=== PATIENT | female | born 1960 | race African-American/Black ===

== ENCOUNTER 2019-05-23 06:03 | Inpatient (IN) | payer OTHER ==
[2019-05-23] MEDS ORDERED: HEPARIN NA (PORCINE) 5,000 UNITS/ML 1ML VIAL ONE (07:20)
[2019-05-23] MEDS ORDERED: THROMBIN (BOVINE) 5,000 UNIT VIAL TP ONE ×2 (07:21→09:01)
[2019-05-23] MEDS ORDERED: SUCCINYLCHOLINE CHLORIDE 200 MG/10 ML SYRINGE ONE (07:25)
[2019-05-23] MEDS ORDERED: PROPOFOL 20 ML ONE ×11 (07:25→11:56)
[2019-05-23] MEDS ORDERED: fentaNYL CITRATE 250 MCG/5 ML VIAL ONE (07:25)
[2019-05-23] MEDS ORDERED: ROCURONIUM BROMIDE 50 MG/5 ML SYRINGE ONE (07:26)
[2019-05-23] MEDS ORDERED: TRANEXAMIC ACID 1000 MG/10 ML VIAL ONE ×2 (07:33→11:54)
[2019-05-23] MEDS ORDERED: ceFAZolin SODIUM 1 GM VIAL ONE ×2 (07:33→17:54)
[2019-05-23] MEDS ORDERED: VANCOMYCIN 1,000 MG VIAL (RESTRICTED TO ID ONLY) ONE ×2 (07:33→07:35)
[2019-05-23] MEDS ORDERED: BENZOIN TINCTURE SWABSTICK TP ONE (07:38)
[2019-05-23] MEDS ORDERED: BUPIVACAINE HCL/PF 0.25% (2.5MG/ML) 10 ML VIAL ONE (07:38)
[2019-05-23] MEDS ORDERED: BUPIVACAINE LIPOSOME/PF (EXPAREL) 266 MG/20 ML VIAL ONE (07:40)
[2019-05-23] MEDS ORDERED: BUPIVACAINE HCL/PF 0.5% (5 MG/ML) 30 ML VIAL IJ ONE (07:41)
[2019-05-23] MEDS ORDERED: MIDAZOLAM HCL 2 MG/2 ML SINGLE DOSE VIAL ONE ×2 (07:41)
[2019-05-23] MEDS ORDERED: VANCOMYCIN 1,000 MG VIAL (RESTRICTED TO ID ONLY) IVPB ONE (08:00)
[2019-05-23] MEDS ORDERED: ceFAZolin SODIUM 1 GM VIAL IVPB ONE (08:45)
[2019-05-23] MEDS ORDERED: ONDANSETRON 4 MG/2 ML VIAL IVPUSH PRN ×2 (08:59→13:14)
[2019-05-23] MEDS ORDERED: LACTATED RINGERS SOLUTION 1,000 ML IV SCH (09:00)
[2019-05-23] MEDS ORDERED: HEPARIN NA (PORCINE) 5,000 UNITS/ML 1ML VIAL SQ ONE (09:07)
[2019-05-23] MEDS ORDERED: PHENYLEPHRINE HCL 10 MG/1 ML SINGLE DOSE VIAL ONE (09:13)
[2019-05-23] MEDS ORDERED: NEOSTIGMINE METHYLSULFATE 0.5 MG/1 ML - 10 ML MDV ONE (10:50)
[2019-05-23] MEDS ORDERED: GLYCOPYRROLATE 0.2 MG/1 ML VIAL ONE (10:50)
[2019-05-23] MEDS ORDERED: diazePAM CARPU-JECT 10 MG/2 ML DISP.SYRIN IVPUSH PRN (13:14)
[2019-05-23] MEDS ORDERED: ACETAMINOPHEN INJECTION 100 ML IVPB ONE (13:19)
[2019-05-23] MEDS: ACETAMINOPHEN 1000 MG/100 ML VIAL (NON FORMULARY) IVPB SCH ×2 (13:20→22:13)
--- NOTE | 2019-05-23 13:35 | PN ---
Progress Note (short form) - Note Progress Note: 58F s/p removal of hardware L4-s1, inspection of fusion mass, L3 & L4 laminectomies, L3-L4, L3-S1 posterior instrumented spinal fusion POD #0. -Admit to ICU post-op. -Pain control: NO NSAID's; patient received pre-op TLIP block w/Exparel; OK to use SHANK PAPERER if needed; transition to oral analgesia post-op. -DVT PPx: -Mechanical only: LEIDA's, SCD's. -Chemical: None. -Incentive spirometry q15 min. -NPO until flatus. -Atwood care; d/c when ambulating. -Post-op Ancef x 3 doses. -PT/OT/Rehab, OOB. -WBAT B/L LE. -No bending, lifting (>5 lbs), or twisting for 9-12 months. -Care per ICU & medical hospitalist teams. -Discharge planning: f/u 7[facility]10 [facility]; call for appointment; . -Will follow. Perry Tate MD (Orthopaedic Surgery).
[2019-05-23] MEDS ORDERED: CEFAZOLIN 1 GM in DEXTROSE 5%-WATER - 50 ML IVPB SCH (13:45)
--- NOTE | 2019-05-23 13:45 | OP ---
Operative Note - Note: Operative Date: 05/23/19 Pre-Operative Diagnosis: 1. Synovial facet cyst L3-L4. 2. Severe spinal stenosis L3-L4. 3. Adjacent level disease L3-L4. 4. L3-L4 spondylotic radiculopathy w/neurogenic claudication. Severity of illness: 4. Operation: 1. Removal of hardware L4-S1. 2. Inspection of fusion mass. 3. L3 & L4 bilateral laminectomies. 4. L3-L4 PLIF. 5. L3-L4 Intervertebral mechanical device. 6. L3-S1 posterior instrumentation. 7. L3-S1 posterolateral arthrodesis. 8. Bone autograft. 9. Bone allograft. 10. Stem cell aspirate autograft Post-Operative Diagnosis: Same as Pre-op Surgeon: Perry Tate Assistant Professor Of Life Sciences: Vicente Tate Anesthesiologist/TECHNICAL SALES SUPPORT MANAGER: John Narayanan Anesthesia: General, Local (TLIP) Specimens Removed: L3-L4 disc. Old hardware Estimated Blood Loss (mls): 700 Drains & Tubes with Location: 1 x Deep HemoVac drain Blood Volume Replaced (mls): 250 (Cell Saver) Fluid Volume Replaced (mls): 2,400 (Crystalloid) Operative Report Dictated: Yes
[2019-05-23] MEDS ORDERED: ACETAMINOPHEN 1000 MG/100 ML VIAL (NON FORMULARY) IVPB ONE ×2 (14:00→20:00)
[2019-05-23] MEDS ORDERED: HYDROmorphone *PCA* 10MG/50ML DISP.SYRIN ONE (14:06)
[2019-05-23] MEDS: HYDROmorphone *PCA* 10MG/50ML DISP.SYRIN PCA SCH (14:19)
--- NOTE | 2019-05-23 14:41 | OP ---
DATE OF OPERATION: DATE OF DICTATION: 05/23/2019 SURGEON: Perry Tate MD LAUNDRY ATTENDANT: Vicente Tate MD PREOPERATIVE DIAGNOSIS: Adjacent level spinal stenosis due to disk prolapse and facet cyst with associated segmental instability at L3, 4 previous L4, 5, 1 posterior lumbar interbody fusion. POSTOPERATIVE DIAGNOSIS: Adjacent level spinal stenosis due to disk prolapse and facet cyst with associated segmental instability at L3, 4 previous L4, 5, 1 posterior lumbar interbody fusion. OPERATIONS PERFORMED: 1. Removal of hardware. Inspection of fusion mass. 2. Laminectomy L3 with undercutting facetectomy. 3. Diskectomy L3, 4 with posterior lumbar interbody fusion. 4. Insertion of cage with interbody bone graft L3, 4. 5. Pedicle screw fixation L3, 4, 5, S1. 6. L3, 4, 5, S1 posterolateral arthrodesis. 7. Use of biplanar fluoroscopy and intraoperative neural monitoring. 8. Use of bone marrow aspirate concentrate with autologous bone graft. 9. Complex wound closure 4 layers 20 cm. ANESTHESIA: General with Exparel paraspinal block. OPERATION DETAILS: Patient correctly identified. Brought to operating room. Imaging was available for intraoperative evaluation. Time-out was called. Indications, persistent, increasing lower back pain with associated femoral claudico radiculopathy due to adjacent level spinal stenosis and associated facet cyst. These elements required decompression. Patient placed prone on a Ulysses table. All bony points correctly padded including paying attention to eyes and level of table. We operated at about 10 degree anti Trendelenburg for optic vein drainage. The skin was prepped and draped in the routine manner with Betadine scrub solution, wiped off with alcohol, DuraPrep applied, window drape applied. Midline incision was made. This was extended proximally. Dissection taken to the tip of the spinous processes of L2. A subperiosteal dissection was performed. The CrossLinq was identified and the dissection extended out laterally to expose the hardware appropriately. The caps of the tulips were removed to L4, 5, 1. The rods were removed. Inspection of the fusion mass revealed that this was solidly fused. Once this had been performed, using a curette, the undersurface of the inferior aspect of the lamina was transected to gain entry into the epidural space using a No. 4 and 5 Kerrison upcut. A central channel in the L3 lamina was cut to expose the dura completely from caudal to cranial, cranial just being caudal to the L2 undersurface of the lamina. Using osteotomes, we imploded the bone by splitting the pars intra-articularis and the inferior facet of L3. This exposed the superior facet of L4 appropriately. As only once the superior facet was exposed could the severe stenosis be readily appreciated, the facet cyst was removed with thickened surrounding tissue as well exposing and freeing the entire thecal sac. No complications in this difficult dissection, which was dissected largely using Leksells, Kerrison upcuts as well as the implosion of the bone using osteotomes as outlined above. The thecal was gently freed completely and retracted from right to left. The disk of L3, 4 identified after teasing the epidural fat off the disk and bipolar diathermization of the epidural bleeders gave easy and clear access to the disk itself. An 11 blade was utilized to open the annulus. Shaver was to size 12 and all disk material removed using serrated curettes, neil as well as pituitary rongeurs. The disk space was then packed with the bone that was harvest posteriorly and packed into the intertransverse plane at L3, 4. Once this had been performed, a Fortilink cage packed with bone graft as well was sunk into the interbody plane opening up the disk height to its original anatomical site and ensured that the perimeter were free to allow the exiting nerve roots appropriately. No complications in seating of the cages. Once this had been completed, the pedicles of L3 were identified using anatomical guidelines and lateral fluoroscopic x-ray. A 4.5 drill was utilized to drill and insert two 45-mm x 6 screws into the pedicles then vertebral bodies. These were then tested with intraoperative neural monitoring, and all screws that were in situ namely from L3, 4, 5, S1 were well above the safe zone of 20 mA. Rods were contoured appropriately to all the tulips and the caps tightened appropriately with a torque device giving it solid fixation. No CrossLinq utilized. The thecal sac and dura and all nerves now completely freed and stabilized by mechanical with the instrumentation. The posterolateral arthrodesis was then completed by retracting the muscles gently exposing the transverse process of L3 to the bony edges of the previous fusion mass, which were bleeding, healthy bone. This was bone graft that was packed into the intertransverse plane, which was a combination of autologous bone mixed with allograft bone morphogenic putty combined with stem cells harvested from the left posterior ilium. We utilized the Jamshidi needle and aspirated 60 mL of marrow spun down for the CD34 cells. This brought about thus a completion of the bone grafting once the bone marrow cells were mixed with the actual graft. The wounds were thoroughly lavaged. Retractors were continuous replaced and removed to enable adequate blood supply to the muscle. The neural monitoring reported improved reading numbers from baseline. By the time we left the operating room, there was significant improvement in the femoral nerve as well as tibialis anterior. A complex muscle closure was utilized. The muscle was inspected, trimmed for any necrotic, damaged muscle then following this, the closure was in 4 layers, muscle 1 Vicryl, fascia 1 Vicryl to provide a watertight seal. Subcutaneous 1 and 2-0 Vicryl, skin 3-0 Monocryl, Steri-Strips. Drainage 1/8-inch Hemovac in the subfascial plane. Overall comment, difficult operation but went extremely well with no complications. MD EREN Pagan/[id number] MTDD
[2019-05-23] MEDS: LACTATED RINGERS SOLUTION 1,000 ML IV SCH ×2 (15:45→22:18)
--- NOTE | 2019-05-23 16:58 | CONSULT ---
Consultation: REQUESTING PROVIDER: CONSULT REQUEST: We have been asked to medically evaluate this patient for ICU management. HISTORY OF PRESENT ILLNESS: 58 y/o/f with PMhx of Anemia, chronic back pain, depression, lumbar radiculopathy sent to the ICU after surgery for removal of hardware L4-s1, inspection of fusion mass, L3 & L4 laminectomies, L3-L4, L3-S1 posterior instrumented spinal fusion. History obtained from family member at bedside. Patient sleeping after surgery but arousable. Not providing full answers as she keeps drifting back to sleep. Patient had elective back surgery due to pain after she had a work injury four years ago. She is able to walk with a cane usually. She often has pain in her lower back that radiates down her legs. On repeat exam patient is responsive, alert, able to follow commands and answer questions appropriately. Complains of back pain but otherwise no concerns. Past Surgical History: Abdominoplasty, breast reconstruction, foot surgery, laminectomy, liposuction, shoulder arthroscopy w/rotator cuff repair Social: Tobacco: never Alcohol: social Drugs: denies Allergies: Morphine, pollen extract REVIEW OF SYSTEMS: ROS not obtained as patient not able to provide accurate answers PHYSICAL EXAMINATION Vital Signs - 24 hr 05/23/19 05/23/19 05/23/19 06:52 07:30 13:02 Temperature 98.0 F 97.5 F L Pulse Rate 59 L 91 H Respiratory 20 14 Rate Blood Pressure 101/73 126/85 O2 Sat by Pulse 99 97 Oximetry (%) 05/23/19 05/23/19 05/23/19 13:15 13:30 13:45 Temperature Pulse Rate 80 87 71 Respiratory 14 16 12 Rate Blood Pressure 133/86 119/77 135/82 O2 Sat by Pulse 100 100 100 Oximetry (%) 05/23/19 05/23/19 05/23/19 14:00 14:15 14:19 Temperature Pulse Rate 60 71 71 Respiratory 16 16 16 Rate Blood Pressure 110/76 116/85 116/85 O2 Sat by Pulse 100 99 100 Oximetry (%) 05/23/19 05/23/19 05/23/19 14:30 14:45 15:00 Temperature Pulse Rate 60 60 58 L Respiratory 10 10 12 Rate Blood Pressure 133/82 139/88 142/85 O2 Sat by Pulse 100 100 100 Oximetry (%) 05/23/19 16:30 Temperature 98.4 F Pulse Rate 53 L Respiratory 13 Rate Blood Pressure 113/78 O2 Sat by Pulse 100 Oximetry (%) GENERAL: awake, alert, no acute distress HEAD: NC/AT EYES: no scleral icterus, PERRL EARS, NOSE, THROAT: dry mucous membranes NECK: supple without lymphadenopathy, JVD, or masses. LUNGS: Breath sounds equal, clear to auscultation bilaterally. No wheezes, and no crackles. No accessory muscle use. HEART: Regular rate and rhythm, normal S1 and S2 without murmur, rub or gallop. ABDOMEN: Soft, nontender, not distended, normoactive bowel sounds, no guarding, no rebound, no masses. No hepatomegaly or splenomegaly. UPPER EXTREMITIES: 2+ pulses, warm, well-perfused. No cyanosis. Cap refill <2 seconds. No peripheral edema. LOWER EXTREMITIES: 2+ pulses, warm, well-perfused. No peripheral edema. NEURO: CN 2-12 normal, normal speech. normal muscle tone. SKIN: Warm, dry, normal turgor, no rashes or lesions noted. Laboratory Results - last 24 hr 05/23/19 05/23/19 06:15 06:47 Blood Type O POSITIVE O POSITIVE Antibody Screen Negative Active Medications Generic Name Dose Route Start Last Admin Trade Name Freq PRN Reason Stop Dose Admin Acetaminophen 1,000 mg 05/23/19 13:30 05/23/19 13:20 Ofirmev Injection - IVPB 05/24/19 05:31 1,000 mg Q8H GRECIA Administration Atorvastatin Calcium 80 mg 05/23/19 22:00 Lipitor - PO HS GRECIA Diazepam 5 mg 05/23/19 13:14 Valium Injection - IVPUSH Q8H PRN MUSCLE SPASMS Hydromorphone HCl 10 mg 05/23/19 09:15 05/23/19 14:19 Hydromorphone 10 Mg/50 Ml-Ns EXTRUSION SUPERVISOR 05/30/19 09:06 10 mg EXTRUSION SUPERVISOR GRECIA Administration Protocol Lactated Ringer's 1,000 mls @ 125 mls/hr 05/23/19 13:15 Lactated Ringers Solution IV ASDIR GRECIA Cefazolin Sodium 1 gm/ 50 mls @ 100 mls/hr 05/23/19 18:00 Dextrose IVPB 05/24/19 06:29 Q6H GRECIA Ondansetron HCl 4 mg 05/23/19 13:14 Zofran Injection IVPUSH Q6H PRN NAUSEA AND/OR VOMITING ASSESSMENT/PLAN: 58 y/o/f with PMhx of Anemia, chronic back pain, depression, lumbar radiculopathy sent to the ICU after surgery for removal of hardware L4-s1, inspection of fusion mass, L3 & L4 laminectomies, L3-L4, L3-S1 posterior instrumented spinal fusion. POD#0. #Neuro - Pain control: NO NSAID's; patient received pre-op TLIP block w/Exparel; OK to use EXTRUSION SUPERVISOR if needed; transition to oral analgesia post-op. - Atwood care; d/c when ambulating #Ortho - No bending, lifting (>5 lbs), or twisting for 9-12 months - PT/OT/Rehab, OOB - WBAT B/L LE - f/u 7-10 days after rehab discharge at [facility] office; call for appointment; . #Cardio - Continue Atorvastatin 80mg PO HS #Respiratory - Incentive spirometry q15 min #GI - NPO until flatus. #ID - Post-op Ancef x 3 doses #Prophylaxis - Mechanical only: LEIDA's, SCD's. - Chemical: None. #FEN - LR@125mls #Disposition - Monitor in ICU Visit type - Emergency Visit Emergency Visit: No - New Patient This patient is new to me today: Yes Date on this admission: 05/24/19 - Critical Care Critical Care patient: Yes Total Critical Care Time (in minutes): 36 Critical Care Statement: The care of this patient involved high complexity decision making to prevent further life threatening deterioration of the patient 's condition and/or to evaluate & treat vital organ system(s) failure or risk of failure. ATTENDING PHYSICIAN STATEMENT I saw and evaluated the patient. I reviewed the resident's note and discussed the case with the resident. I agree with the resident's findings and plan as documented. SUBJECTIVE: OBJECTIVE: ASSESSMENT AND PLAN:
[2019-05-23] MEDS ORDERED: DEXTROSE 5%-WATER - 50 ML IVPB ONE (17:54)
[2019-05-23] MEDS: CEFAZOLIN 1 GM in DEXTROSE 5%-WATER - 50 ML IVPB SCH (17:57)
[2019-05-23] MEDS: ATORVASTATIN CA 80 MG TABLET (FP) PO SCH (22:18)
[2019-05-24] MEDS: CEFAZOLIN 1 GM in DEXTROSE 5%-WATER - 50 ML IVPB SCH ×2 (00:50→05:22)
[2019-05-24] MEDS ORDERED: ceFAZolin SODIUM 1 GM VIAL ONE ×2 (02:06→05:18)
[2019-05-24] MEDS ORDERED: DEXTROSE 5%-WATER - 50 ML IVPB ONE ×2 (02:07→05:18)
[2019-05-24] MEDS: ACETAMINOPHEN 1000 MG/100 ML VIAL (NON FORMULARY) IVPB SCH (05:21)
[2019-05-24 06:52] LABS: HEMATOCRIT 32.6 % (32.4-45.2); HEMOGLOBIN 10.7 GM/dL (10.7-15.3); MCH 27.1 pg (25.7-33.7); MCHC 32.9 g/dl (32.0-36.0); MEAN CELL VOLUME 82.4 fl (80-96); MEAN PLT VOLUME 8.7 fl (7.5-11.1); PLATELET COUNT 170 K/MM3 (134-434); RBC 3.96 M/mm3 (3.60-5.2); RDW 14.4 % (11.6-15.6); WHITE BLOOD COUNT 7.1 K/mm3 (4.0-10.0)
[2019-05-24 07:17] LABS: BLOOD UREA NITROGEN 8.2 mg/dL (7-18); CALCIUM 8.1 mg/dL (8.5-10.1); CREATININE 0.8 mg/dL (0.55-1.3); POTASSIUM 3.8 mmol/L (3.5-5.1)
--- NOTE | 2019-05-24 07:40 | PN ---
Progress Note (short form) - Note Progress Note: Anesthesia Post op note Pt seen s/p GA w/ PNB for lumbar hardware removal Pt awake alert comfortable in bed Denies n/v tolerating sips, denies puritis, Atwood remains in situ, pt has not ambulated Pt pain managed well on MAC ARTIST - continue MAC ARTIST VSS no apparent anesthesia complications Carmen Hamilton.
--- NOTE | 2019-05-24 07:43 | PN ---
Physical Exam: SUBJECTIVE: Patient seen and examined by the bedside. Endorses lower back pain, denies flatus. No SOB, chest pain, or confusion. OBJECTIVE: Vital Signs Period Temp Pulse Resp BP Sys/Armas Pulse Ox Last 24 Hr 97.5 F-101.4 F 53-103 10-20 99-145/67-94 97-100 GENERAL: AOx3 HEAD: No evidecne of trauma EYES: SHADY, EOMI EARS, NOSE, THROAT: dry mucous membranes NECK: supple without lymphadenopathy, JVD, or masses. LUNGS: Decreased breath sounds B/L HEART: RRR ABDOMEN: Soft, nontender, not distended, normoactive bowel sounds, no guarding, no rebound, no masses. No hepatomegaly or splenomegaly. UPPER EXTREMITIES: 2+ pulses, warm, well-perfused. No cyanosis. Cap refill <2 seconds. No peripheral edema. LOWER EXTREMITIES: 2+ pulses, warm, well-perfused. No peripheral edema. NEURO: CN 2-12 normal, normal speech. normal muscle tone. SKIN: Warm, dry, normal turgor, no rashes or lesions noted. Laboratory Results - last 24 hr 05/23/19 05/23/19 05/24/19 06:15 06:47 05:20 Sodium 136 Potassium 3.8 Chloride 100 Carbon Dioxide 31 Anion Gap 5 L BUN 8.2 Creatinine 0.8 Est GFR (CKD-EPI)AfAm 94.19 Est GFR (CKD-EPI)NonAf 81.27 Random Glucose 101 Calcium 8.1 L Blood Type O POSITIVE O POSITIVE Antibody Screen Negative Active Medications Generic Name Dose Route Start Last Admin Trade Name Freq PRN Reason Stop Dose Admin Atorvastatin Calcium 80 mg 05/23/19 22:00 05/23/19 22:18 Lipitor - PO 80 mg HS GRECIA Administration Diazepam 5 mg 05/23/19 13:14 Valium Injection - IVPUSH Q8H PRN MUSCLE SPASMS Hydromorphone HCl 10 mg 05/23/19 09:15 05/23/19 14:19 Hydromorphone 10 Mg/50 Ml-Ns WEIGHT CALLER 05/30/19 09:06 10 mg WEIGHT CALLER GRECIA Administration Protocol Lactated Ringer's 1,000 mls @ 125 mls/hr 05/23/19 13:15 05/23/19 22:18 Lactated Ringers Solution IV 125 mls/hr ASDIR GRECIA Administration Ondansetron HCl 4 mg 05/23/19 13:14 Zofran Injection IVPUSH Q6H PRN NAUSEA AND/OR VOMITING ASSESSMENT/PLAN: 58 year old female with PMH of Anemia, chronic back pain, depression, and lumbar radiculopathy. POD#1 after removal of hardware L4-S1, inspection of fusion mass, L3 & L4 laminectomies, L3-L4, L3-S1 posterior instrumented spinal fusion. #Neuro - NO NSAIDS - Received pre-op TLIP (thoraco lumbar interfascial plane) block w/Exparel - Hydromorphone 10mg WEIGHT CALLER #Ortho - No bending, lifting (>5 lbs), or twisting for 9-12 months - PT/OT/Rehab #Cardio - Continue Atorvastatin 80mg PO HS #Respiratory - CXR ordered - Incentive spirometry q15 min #GI - NPO until flatus. #ID - Fever of 101.2, CXR ordered, atelectasis suspected - Post-op Cefazolin x 3 doses #DVT PE - SCD #FEN - LR@125mls #Disposition - Transfer to med/surg Visit type - Emergency Visit Emergency Visit: Yes ED Registration Date: 05/23/19 Care time: The patient presented to the Emergency Department on the above date and was hospitalized for further evaluation of their emergent condition. - New Patient This patient is new to me today: No - Critical Care Critical Care patient: Yes Total Critical Care Time (in minutes): 38 Critical Care Statement: The care of this patient involved high complexity decision making to prevent further life threatening deterioration of the patient 's condition and/or to evaluate & treat vital organ system(s) failure or risk of failure. ATTENDING PHYSICIAN STATEMENT I saw and evaluated the patient. I reviewed the resident's note and discussed the case with the resident. I agree with the resident's findings and plan as documented. SUBJECTIVE: OBJECTIVE: ASSESSMENT AND PLAN:
[2019-05-24] MEDS: LACTATED RINGERS SOLUTION 1,000 ML IV SCH (09:02)
--- NOTE | 2019-05-24 10:50 | PN ---
Physical Exam: SUBJECTIVE: Patient seen and examined at the bedside. offers no complaints. OBJECTIVE: Patient is a 58 year old female with a significant past medical history of anemia, chronic back pain, depression, lumbar radiculopathy and HLD. She is being monitored in the ICU s/p surgery for removal of hardware L4-S1, inspection of fusion mass, L3 & L4 laminectomies, L3-L4, L3-S1 posterior instrumented spinal fusion. Pain being managed with ELECTRONIC GAME DEVELOPER pump. Vital Signs Period Temp Pulse Resp BP Sys/Armas Pulse Ox Last 24 Hr 97.5 F-101.4 F 53-103 10 99-145/60-94 97-100 GENERAL: The patient is awake, alert, and fully oriented, in no acute distress. HEAD: Normal with no signs of trauma. EYES: PERRL, extraocular movements intact, sclera anicteric, conjunctiva clear. No ptosis. ENT: Ears normal, nares patent, oropharynx clear without exudates, moist mucous membranes. NECK: Trachea midline, full range of motion, supple. LUNGS: Breath sounds equal, clear to auscultation bilaterally HEART: Regular rate and rhythm, S1, S2 without murmur, rub or gallop. ABDOMEN: Soft, nontender, nondistended, normoactive bowel sounds EXTREMITIES: 2+ pulses, warm, well-perfused, no edema. NEUROLOGICAL: Normal speech, gait not observed. PSYCH: Normal mood, normal affect. Laboratory Results - last 24 hr 05/23/19 05/24/19 05/24/19 06:47 05:20 05:20 WBC 7.1 RBC 3.96 Hgb 10.7 Hct 32.6 MCV 82.4 MCH 27.1 MCHC 32.9 RDW 14.4 Plt Count 170 MPV 8.7 Sodium 136 Potassium 3.8 Chloride 100 Carbon Dioxide 31 Anion Gap 5 L BUN 8.2 Creatinine 0.8 Est GFR (CKD-EPI)AfAm 94.19 Est GFR (CKD-EPI)NonAf 81.27 Random Glucose 101 Calcium 8.1 L Blood Type O POSITIVE Active Medications Generic Name Dose Route Start Last Admin Trade Name Freq PRN Reason Stop Dose Admin Atorvastatin Calcium 80 mg 05/23/19 22:00 05/23/19 22:18 Lipitor - PO 80 mg HS GRECIA Administration Diazepam 5 mg 05/23/19 13:14 Valium Injection - IVPUSH Q8H PRN MUSCLE SPASMS Hydromorphone HCl 10 mg 05/23/19 09:15 05/23/19 14:19 Hydromorphone 10 Mg/50 Ml-Ns ELECTRONIC GAME DEVELOPER 05/30/19 09:06 10 mg ELECTRONIC GAME DEVELOPER GRECIA Administration Protocol Lactated Ringer's 1,000 mls @ 125 mls/hr 05/23/19 13:15 05/24/19 09:02 Lactated Ringers Solution IV 125 mls/hr ASDIR GRECIA Administration Ondansetron HCl 4 mg 05/23/19 13:14 Zofran Injection IVPUSH Q6H PRN NAUSEA AND/OR VOMITING ASSESSMENT/PLAN: Problem List - Problems (1) S/P laminectomy Assessment/Plan: Lumbar Spinal Stenosis with Radiculopathy and Neurogenic Claudication s/p PEDRO LUIS L4-S1/L3-L4 PLIF/L3-S1 Posterior Instrumentation pain managed with reconciliation clerk pump keep npo until flatus incentive spirometer physical therapy once cleared by surgery wound care bowel regimen Code(s): Z98.890 - OTHER SPECIFIED POSTPROCEDURAL STATES (2) Hypercholesteremia Assessment/Plan: on lipitor 80mg daily Code(s): E78.00 - PURE HYPERCHOLESTEROLEMIA, UNSPECIFIED (3) Prophylactic measure Assessment/Plan: bowel regimen incentive spriometer diet once patient passing flatus monitor in icu full code Code(s): Z29.9 - ENCOUNTER FOR PROPHYLACTIC MEASURES, UNSPECIFIED Visit type - Emergency Visit Emergency Visit: Yes ED Registration Date: 05/23/19 Care time: The patient presented to the Emergency Department on the above date and was hospitalized for further evaluation of their emergent condition. - New Patient This patient is new to me today: Yes Date on this admission: 05/24/19 - Critical Care Critical Care patient: Yes Total Critical Care Time (in minutes): 45 Critical Care Statement: The care of this patient involved high complexity decision making to prevent further life threatening deterioration of the patient 's condition and/or to evaluate & treat vital organ system(s) failure or risk of failure. - Discharge Referral Referred to [facility] Med P.C.: No
[2019-05-24] MEDS ORDERED: LACTATED RINGERS SOLUTION 1,000 ML IV SCH (11:50)
--- NOTE | 2019-05-24 11:57 | PN ---
Teaching Attending Note Name of Resident: Marcos Choudhury ATTENDING PHYSICIAN STATEMENT I saw and evaluated the patient. I reviewed the resident's note and discussed the case with the resident. I agree with the resident's findings and plan as documented. SUBJECTIVE: Pt seen and examined in the ICU. Pain controlled with INSPECTOR HANDBAG FRAMES pump. No flatus yet. Febrile overnight. OBJECTIVE: Vital Signs Period Temp Pulse Resp BP Sys/Armas Pulse Ox Last 24 Hr 97.5 F-101.4 F 53-103 - 99-145/60-94 97-100 Intake & Output 05/21/19 05/22/19 05/23/19 05/24/19 23:59 23:59 23:59 23:59 Intake Total 3655 2019 Output Total 0 1999 Balance 2004 Weight 80.467 kg 82.554 kg Gen: NAD at rest Heart: RRR Lung: decreased breath sounds at the bases Abd: soft, nontender Ext: no edema CBC, BMP 05/24/19 05:20 05/24/19 05:20 Active Medications Atorvastatin Calcium (Lipitor -) 80 mg PO HS GRECIA Last Admin: 05/23/19 22:18 Dose: 80 mg Diazepam (Valium Injection -) 5 mg IVPUSH Q8H PRN PRN Reason: MUSCLE SPASMS Hydromorphone HCl (Hydromorphone 10 Mg/50 Ml-Ns) 10 mg INSPECTOR HANDBAG FRAMES INSPECTOR HANDBAG FRAMES GRECIA; Protocol Stop: 05/30/19 09:06 Last Admin: 05/23/19 14:19 Dose: 10 mg Lactated Ringer's (Lactated Ringers Solution) 1,000 mls @ 75 mls/hr IV ASDIR GRECIA Ondansetron HCl (Zofran Injection) 4 mg IVPUSH Q6H PRN PRN Reason: NAUSEA AND/OR VOMITING ASSESSMENT AND PLAN: Lumbar Spinal Stenosis with Radiculopathy and Neurogenic Claudication s/p PEDRO LUIS L4-S1/L3-L4 PLIF/L3-S1 Posterior Instrumentation Hypercholesterolemia - pain control - incentive spirometry - PO when flatus - IVF - d/c marquez when OOB - DVT prophylaxis - disposition/activity per surgery
[2019-05-24] MEDS ORDERED: ACETAMINOPHEN 1000 MG/100 ML VIAL (NON FORMULARY) IVPB PRN (12:59)
[2019-05-24] MEDS: HYDROmorphone *PCA* 10MG/50ML DISP.SYRIN PCA SCH (19:19)
[2019-05-24] MEDS: ATORVASTATIN CA 80 MG TABLET (FP) PO SCH (21:46)
--- NOTE | 2019-05-24 23:47 | PN ---
Progress Note (short form) - Note Progress Note: POD #! ICU Comfortable C/O Incisional pain. No leg pain. Fully orientated CVS Stable RESP Clear ABD Soft No flatus Minimal distension. Wound Dry Drain in situ. NEURO At baseline ASSESSMENT Doing well post L3to S1 decompression Instrumented fusion. PLAN Transfer out of ICU PT mobilize as tolerated Pain Mx D/C planning
[2019-05-25 06:24] LABS: BASO % 0.3 % (0-2.0); EOS % 0.2 % (0-4.5); HEMATOCRIT 32.1 % (32.4-45.2); HEMOGLOBIN 10.5 GM/dL (10.7-15.3); LYMPH % 12.5 % (8-40); MCH 27.1 pg (25.7-33.7); MCHC 32.8 g/dl (32.0-36.0); MEAN CELL VOLUME 82.8 fl (80-96); MEAN PLT VOLUME 8.7 fl (7.5-11.1); PLATELET COUNT 167 K/MM3 (134-434); RBC 3.87 M/mm3 (3.60-5.2); RDW 14.1 % (11.6-15.6); WHITE BLOOD COUNT 9.7 K/mm3 (4.0-10.0)
[2019-05-25 07:19] LABS: ALBUMIN 2.7 g/dl (3.4-5.0); BILIRUBIN,TOTAL 2.4 mg/dL (0.2-1); BLOOD UREA NITROGEN 8.1 mg/dL (7-18); CALCIUM 8.7 mg/dL (8.5-10.1); CREATININE 0.7 mg/dL (0.55-1.3); MAGNESIUM 1.8 mg/dL (1.8-2.4); PHOSPHOROUS 2.8 mg/dL (2.5-4.9); POTASSIUM 3.6 mmol/L (3.5-5.1); TOT PROT 5.7 g/dl (6.4-8.2)
--- NOTE | 2019-05-25 07:39 | PN ---
Physical Exam: SUBJECTIVE: Patient seen and examined by the bedside. Endorses lower back pain, denies flatus. No SOB, chest pain, or confusion. OBJECTIVE: Vital Signs Period Temp Pulse Resp BP Sys/Armas Pulse Ox Last 24 Hr 98.5 F-101.8 F 83-112 16-22 91-121/56-86 100-100 GENERAL: AOx3 HEAD: No evidecne of trauma EYES: SHADY, EOMI EARS, NOSE, THROAT: dry mucous membranes NECK: supple without lymphadenopathy, JVD, or masses. LUNGS: Decreased breath sounds B/L HEART: RRR ABDOMEN: Soft, nontender, not distended, normoactive bowel sounds, no guarding, no rebound, no masses. No hepatomegaly or splenomegaly. UPPER EXTREMITIES: 2+ pulses, warm, well-perfused. No cyanosis. Cap refill <2 seconds. No peripheral edema. LOWER EXTREMITIES: 2+ pulses, warm, well-perfused. No peripheral edema. NEURO: CN 2-12 normal, normal speech. normal muscle tone. SKIN: Warm, dry, normal turgor, no rashes or lesions noted. Laboratory Results - last 24 hr 05/24/19 05/24/19 05/25/19 05:20 15:15 05:20 WBC 7.1 9.7 RBC 3.96 3.87 Hgb 10.7 10.5 L Hct 32.6 32.1 L MCV 82.4 82.8 MCH 27.1 27.1 MCHC 32.9 32.8 RDW 14.4 14.1 Plt Count 170 167 MPV 8.7 8.7 Absolute Neuts (auto) 7.3 Neutrophils % 75.0 Lymphocytes % 12.5 Monocytes % 12.0 H Eosinophils % 0.2 Basophils % 0.3 Nucleated RBC % 0 Sodium Potassium Chloride Carbon Dioxide Anion Gap BUN Creatinine Est GFR (CKD-EPI)AfAm Est GFR (CKD-EPI)NonAf Random Glucose Lactic Acid 1.2 Calcium Phosphorus Magnesium Total Bilirubin AST ALT Alkaline Phosphatase Total Protein Albumin 05/25/19 05:20 WBC RBC Hgb Hct MCV MCH MCHC RDW Plt Count MPV Absolute Neuts (auto) Neutrophils % Lymphocytes % Monocytes % Eosinophils % Basophils % Nucleated RBC % Sodium 138 Potassium 3.6 Chloride 102 Carbon Dioxide 27 Anion Gap 9 BUN 8.1 Creatinine 0.7 Est GFR (CKD-EPI)AfAm 110.69 Est GFR (CKD-EPI)NonAf 95.50 Random Glucose 68 L Lactic Acid Calcium 8.7 Phosphorus 2.8 Magnesium 1.8 Total Bilirubin 2.4 H AST 39 H ALT 19 Alkaline Phosphatase 65 Total Protein 5.7 L Albumin 2.7 L Active Medications Generic Name Dose Route Start Last Admin Trade Name Freq PRN Reason Stop Dose Admin Acetaminophen 1,000 mg 05/24/19 12:59 05/24/19 13:33 Ofirmev Injection - IVPB 1,000 mg Q6H PRN Administration FEVER Atorvastatin Calcium 80 mg 05/23/19 22:00 05/24/19 21:46 Lipitor - PO 80 mg HS GRECIA Administration Diazepam 5 mg 05/23/19 13:14 Valium Injection - IVPUSH Q8H PRN MUSCLE SPASMS Hydromorphone HCl 10 mg 05/23/19 09:15 05/24/19 19:19 Hydromorphone 10 Mg/50 Ml-Ns HVAC FIELD SERVICE TECHNICIAN 05/30/19 09:06 Not Given HVAC FIELD SERVICE TECHNICIAN GRECIA Protocol Lactated Ringer's 1,000 mls @ 75 mls/hr 05/24/19 11:50 05/24/19 12:01 Lactated Ringers Solution IV 75 mls/hr ASDIR GRECIA Administration Ondansetron HCl 4 mg 05/23/19 13:14 Zofran Injection IVPUSH Q6H PRN NAUSEA AND/OR VOMITING ASSESSMENT/PLAN: 58 year old female with PMH of anemia, chronic back pain, depression, and lumbar radiculopathy. POD#2 after L3to S1 decompression Instrumented fusion. #ID - Temperature down to 99 from 101.2 yesterday - CXR showed no evidence of atelectasis - Bcx ucx pending - Post-op Cefazolin x 3 doses - No output in wound drain #Neuro - NO NSAIDS - Received pre-op TLIP (thoraco lumbar interfascial plane) block w/Exparel - Hydromorphone 10mg HVAC FIELD SERVICE TECHNICIAN - Tylenol IV for pain #Ortho - No bending, lifting (>5 lbs), or twisting for 9-12 months - PT/OT/Rehab #Cardio - Continue Atorvastatin 80mg PO HS #Respiratory - CXR showed no evidence of atelectasis - Incentive spirometry q15 min #GI - No flatus, no BMs - NPO until flatus, but has been drinking water #DVT PE - SCD #FEN - D/5 N/S with 20mEQ K+ @ 75ml/HR - Clear liquids #Disposition - Transfer to med/surg ATTENDING PHYSICIAN STATEMENT I saw and evaluated the patient. I reviewed the resident's note and discussed the case with the resident. I agree with the resident's findings and plan as documented. SUBJECTIVE: OBJECTIVE: ASSESSMENT AND PLAN:
--- NOTE | 2019-05-25 08:58 | PN ---
Progress Note (short form) - Note Progress Note: 58F POD#2 s/p removal of lumbar hardware under GA. Pt. doing well this am. Pain adequately controlled with PRINTING TABLE HAND. No evidence of excessive sedation or resp depression. Recommend continue PRINTING TABLE HAND. Continue management per primary team.
--- NOTE | 2019-05-25 10:32 | PN ---
Physical Exam: SUBJECTIVE: Patient seen and examined at the bedside. OBJECTIVE: Patient is a 58 year old female with a significant past medical history of anemia, chronic back pain, depression, lumbar radiculopathy and HLD. She is being monitored in the ICU s/p surgery for removal of hardware L4-S1, inspection of fusion mass, L3 & L4 laminectomies, L3-L4, L3-S1 posterior instrumented spinal fusion. Pain being managed with CRANE CREW SUPERVISOR pump. Vital Signs Period Temp Pulse Resp BP Sys/Armas Pulse Ox Last 24 Hr 98.5 F-101.8 F 82-112 16-20 91-121/56-86 96-100 GENERAL: The patient is awake, alert, and fully oriented, in no acute distress. HEAD: Normal with no signs of trauma. EYES: PERRL, extraocular movements intact, sclera anicteric, conjunctiva clear. No ptosis. ENT: Ears normal, nares patent, oropharynx clear without exudates, moist mucous membranes. NECK: Trachea midline, full range of motion, supple. LUNGS: Breath sounds equal, clear to auscultation bilaterally HEART: Regular rate and rhythm, S1, S2 without murmur, rub or gallop. ABDOMEN: Soft, nontender, nondistended, normoactive bowel sounds EXTREMITIES: 2+ pulses, warm, well-perfused, no edema. NEUROLOGICAL: Normal speech, gait not observed. PSYCH: Normal mood, normal affect. Laboratory Results - last 24 hr 05/24/19 05/25/19 05/25/19 15:15 05:20 05:20 WBC 9.7 RBC 3.87 Hgb 10.5 L Hct 32.1 L MCV 82.8 MCH 27.1 MCHC 32.8 RDW 14.1 Plt Count 167 MPV 8.7 Absolute Neuts (auto) 7.3 Neutrophils % 75.0 Lymphocytes % 12.5 Monocytes % 12.0 H Eosinophils % 0.2 Basophils % 0.3 Nucleated RBC % 0 Sodium 138 Potassium 3.6 Chloride 102 Carbon Dioxide 27 Anion Gap 9 BUN 8.1 Creatinine 0.7 Est GFR (CKD-EPI)AfAm 110.69 Est GFR (CKD-EPI)NonAf 95.50 Random Glucose 68 L Lactic Acid 1.2 Calcium 8.7 Phosphorus 2.8 Magnesium 1.8 Total Bilirubin 2.4 H AST 39 H ALT 19 Alkaline Phosphatase 65 Total Protein 5.7 L Albumin 2.7 L Active Medications Generic Name Dose Route Start Last Admin Trade Name Freq PRN Reason Stop Dose Admin Acetaminophen 1,000 mg 05/24/19 12:59 05/24/19 13:33 Ofirmev Injection - IVPB 1,000 mg Q6H PRN Administration FEVER Atorvastatin Calcium 80 mg 05/23/19 22:00 05/24/19 21:46 Lipitor - PO 80 mg HS GRECIA Administration Hydromorphone HCl 10 mg 05/23/19 09:15 05/24/19 19:19 Hydromorphone 10 Mg/50 Ml-Ns CRANE CREW SUPERVISOR 05/30/19 09:06 Not Given CRANE CREW SUPERVISOR GRECIA Protocol Lactated Ringer's 1,000 mls @ 75 mls/hr 05/24/19 11:50 05/24/19 12:01 Lactated Ringers Solution IV 75 mls/hr ASDIR GRECIA Administration Ondansetron HCl 4 mg 05/23/19 13:14 Zofran Injection IVPUSH Q6H PRN NAUSEA AND/OR VOMITING ASSESSMENT/PLAN: Problem List - Problems (1) S/P laminectomy Assessment/Plan: Lumbar Spinal Stenosis with Radiculopathy and Neurogenic Claudication s/p PEDRO LUIS L4-S1/L3-L4 PLIF/L3-S1 Posterior Instrumentation pain managed with butcher meat pump started on clears incentive spirometer physical therapy ambulated with pt today, and will see daily wound care bowel regimen Code(s): Z98.890 - OTHER SPECIFIED POSTPROCEDURAL STATES (2) Hypercholesteremia Assessment/Plan: on lipitor 80mg daily Code(s): E78.00 - PURE HYPERCHOLESTEROLEMIA, UNSPECIFIED (3) Prophylactic measure Assessment/Plan: bowel regimen incentive spriometer clears, advance as tolerated full code Code(s): Z29.9 - ENCOUNTER FOR PROPHYLACTIC MEASURES, UNSPECIFIED Visit type - Emergency Visit Emergency Visit: Yes ED Registration Date: 05/23/19 Care time: The patient presented to the Emergency Department on the above date and was hospitalized for further evaluation of their emergent condition. - New Patient This patient is new to me today: No - Critical Care Critical Care patient: No - Discharge Referral Referred to [facility] No
[2019-05-25] MEDS: HYDROmorphone *PCA* 10MG/50ML DISP.SYRIN PCA SCH ×2 (10:33→13:39)
[2019-05-25] MEDS: D5-NS + 20 MEQ KCL - 20 MEQ/1,000 ML INFUS.BAG IV SCH ×2 (11:02→22:10)
[2019-05-25] MEDS: ACETAMINOPHEN 1000 MG/100 ML VIAL (NON FORMULARY) IVPB PRN (11:14)
--- NOTE | 2019-05-25 11:57 | PN ---
Teaching Attending Note Name of Resident: Marcos Choudhury ATTENDING PHYSICIAN STATEMENT I saw and evaluated the patient. I reviewed the resident's note and discussed the case with the resident. I agree with the resident's findings and plan as documented. SUBJECTIVE: Pt seen and examined in the ICU. Pain controlled with current regimen. No nausea. Stood with PT yesterday. Fevers down. OBJECTIVE: Vital Signs Period Temp Pulse Resp BP Sys/Armas Pulse Ox Last 24 Hr 98.5 F-101.8 F 82-112 16-20 91-121/56-86 96-100 Intake & Output 05/22/19 05/23/19 05/24/19 05/25/19 23:59 23:59 23:59 23:59 Intake Total 3655 4170 900 Output Total 1650 6400 1600 Balance 2004 Weight 80.467 kg 82.554 kg 82.554 kg Gen: NAD at rest Heart: RRR Lung: decreased breath sounds at the bases Abd: soft, nontender Ext: no edema CBC, BMP 05/25/19 05:20 05/25/19 05:20 Active Medications Acetaminophen (Ofirmev Injection -) 1,000 mg IVPB Q6H PRN PRN Reason: PAIN LEVEL 7 - 10 Last Admin: 05/25/19 11:14 Dose: 1,000 mg Atorvastatin Calcium (Lipitor -) 80 mg PO HS GRECIA Last Admin: 05/24/19 21:46 Dose: 80 mg Hydromorphone HCl (Hydromorphone 10 Mg/50 Ml-Ns) 10 mg LAND ACQUISITION MANAGER LAND ACQUISITION MANAGER GRECIA; Protocol Stop: 05/30/19 09:06 Last Admin: 05/25/19 10:33 Dose: Not Given Dextrose/Sodium Chloride (Dextrose 5%-Normal Saline+20 Meq Kcl -) 20 meq in 1, 000 mls @ 75 mls/hr IV ASDIR GRECIA Last Admin: 05/25/19 11:02 Dose: 75 mls/hr Ondansetron HCl (Zofran Injection) 4 mg IVPUSH Q6H PRN PRN Reason: NAUSEA AND/OR VOMITING ASSESSMENT AND PLAN: Lumbar Spinal Stenosis with Radiculopathy and Neurogenic Claudication s/p PEDRO LUIS L4-S1/L3-L4 PLIF/L3-S1 Posterior Instrumentation Hypercholesterolemia Anemia - pain control - incentive spirometry - PO as tolerated - IVF - d/c marquez when OOB - DVT prophylaxis - disposition/activity per surgery
[2019-05-25 12:29] VITALS: BMI 28.5
[2019-05-25] MEDS: DOCUSATE SODIUM 100 MG CAPSULE (FP) PO SCH ×2 (16:59→22:09)
[2019-05-25] MEDS: POLYETHYLENE GLYCOL 3350 119 GM BTL PO SCH (17:00)
[2019-05-25] MEDS ORDERED: ONDANSETRON 4 MG/2 ML VIAL IVPUSH PRN (18:18)
--- NOTE | 2019-05-25 18:33 | PN ---
Progress Note (short form) - Note Progress Note: POD #2 ICU Comfortable C/O Incisional pain. No leg pain. Fully orientated CVS Stable RESP Clear ABD Soft Passed flatus Minimal distension. Wound Dry Drain removed NEURO At baseline ASSESSMENT Doing well post L3to S1 decompression Instrumented fusion. PLAN Transfer out of ICU PT mobilize as tolerated Pain Mx D/C planning
--- NOTE | 2019-05-25 19:12 | PATH ---
Surgical Pathology Report Patient Name: WILIAM PRESTON [facility]. Rec. #: [id number] /Age/Gender: 1960 (Age: 58) / F Account: [id number] Location: ICU SULFURIC ACID PLANT OPERATOR Taken: 05/23/2019 Received: 05/23/2019 Reported: 05/25/2019 Physicians: Perry Tate M.D. Specimen(s) Received A: REMOVED HARDWARE B: L3/L4 DISC Clinical History Fusion of spine, lumbar region Final Diagnosis A. REMOVED HARDWARE: CONSISTENT WITH HARDWARE. GROSS EXAMINATION ONLY. B. L3/4 DISC, DISCECTOMY: FRAGMENTS OF CARTILAGINOUS TISSUE WITH FOCAL DEGENERATIVE CHANGE. Electronically Signed Shirley Elizondo M.D. Gross Description A. Received fresh labeled "removed hardware," are 2 devine metallic, bent rods averaging 6.5 cm in length. Also received within the same container is a 5.4 x 1.3 x 0.8 cm yellow metallic portion of hardware. No soft tissue is present. No sections are submitted, gross only. B. Received in formalin labeled "L3-4 disc," is a 4.0 x 3.3 x 0.4 cm aggregate of weiner fragments of fibrocartilaginous tissue. A retail field representative portion is submitted in one cassette. 05/24/2019 saudi05/24/2019
[2019-05-25] MEDS ORDERED: PT OWN MED DRAWER 7, Y5N ONE (19:44)
[2019-05-25] MEDS: ATORVASTATIN CA 80 MG TABLET (FP) PO SCH (22:08)
[2019-05-26] MEDS: ACETAMINOPHEN 1000 MG/100 ML VIAL (NON FORMULARY) IVPB PRN ×2 (01:14→20:45)
[2019-05-26] MEDS: DOCUSATE SODIUM 100 MG CAPSULE (FP) PO SCH ×3 (05:14→21:13)
[2019-05-26] MEDS: HYDROmorphone *PCA* 10MG/50ML DISP.SYRIN PCA SCH ×2 (07:23→17:38)
--- NOTE | 2019-05-26 08:49 | PN ---
Progress Note (short form) - Note Progress Note: Patient stable and lying in the bed comfortably but c/o pain score of 5-6/10 on Dilaudid DIALYSIS CLINICAL MANAGER.Will continue DIALYSIS CLINICAL MANAGER today and will f/u tomorrow.
[2019-05-26 09:18] LABS: BASO % 0.3 % (0-2.0); HEMOGLOBIN 9.4 GM/dL (10.7-15.3); LYMPH % 15.7 % (8-40); MCHC 32.6 g/dl (32.0-36.0); MEAN CELL VOLUME 82.7 fl (80-96); MEAN PLT VOLUME 8.9 fl (7.5-11.1); PLATELET COUNT 167 K/MM3 (134-434); RDW 14.5 % (11.6-15.6); WHITE BLOOD COUNT 7.8 K/mm3 (4.0-10.0)
[2019-05-26] MEDS: POLYETHYLENE GLYCOL 3350 119 GM BTL PO SCH (09:58)
[2019-05-26] MEDS: D5-NS + 20 MEQ KCL - 20 MEQ/1,000 ML INFUS.BAG IV SCH (11:20)
[2019-05-26 11:28] LABS: ALBUMIN 2.3 g/dl (3.4-5.0); BILIRUBIN,TOTAL 1.5 mg/dL (0.2-1); BLOOD UREA NITROGEN 7.8 mg/dL (7-18); CALCIUM 8.1 mg/dL (8.5-10.1); CREATININE 0.7 mg/dL (0.55-1.3); POTASSIUM 3.7 mmol/L (3.5-5.1); TOT PROT 5.5 g/dl (6.4-8.2)
--- NOTE | 2019-05-26 15:31 | PN ---
Physical Exam: SUBJECTIVE: Patient seen and examined at the bedside. in no acute distress. feels well. had BM yesterday OBJECTIVE: low grade fevers, cultures ngtd Patient is a 58 year old female with a significant past medical history of anemia, chronic back pain, depression, lumbar radiculopathy and HLD. She is being monitored in the ICU s/p surgery for removal of hardware L4-S1, inspection of fusion mass, L3 & L4 laminectomies, L3-L4, L3-S1 posterior instrumented spinal fusion. Pain being managed with TRIBAL COUNCIL MEMBER pump. Vital Signs Period Temp Pulse Resp BP Sys/Armas Pulse Ox Last 24 Hr 98.3 F-102.6 F 86-112 16-24 100-131/58-76 94-98 GENERAL: The patient is awake, alert, and fully oriented, in no acute distress. HEAD: Normal with no signs of trauma. EYES: PERRL, extraocular movements intact, sclera anicteric, conjunctiva clear. No ptosis. ENT: Ears normal, nares patent, oropharynx clear without exudates, moist mucous membranes. NECK: Trachea midline, full range of motion, supple. LUNGS: Breath sounds equal, clear to auscultation bilaterally HEART: Regular rate and rhythm, S1, S2 without murmur, rub or gallop. ABDOMEN: Soft, nontender, nondistended, normoactive bowel sounds EXTREMITIES: 2+ pulses, warm, well-perfused, no edema. NEUROLOGICAL: Normal speech, gait not observed. PSYCH: Normal mood, normal affect. Laboratory Results - last 24 hr 05/26/19 05/26/19 08:15 08:15 WBC 7.8 RBC 3.50 L Hgb 9.4 L Hct 29.0 L MCV 82.7 MCH 27.0 MCHC 32.6 RDW 14.5 Plt Count 167 MPV 8.9 Absolute Neuts (auto) 5.6 Neutrophils % 72.0 Lymphocytes % 15.7 D Monocytes % 11.0 H Eosinophils % 1.0 D Basophils % 0.3 Nucleated RBC % 0 Sodium 140 Potassium 3.7 Chloride 105 Carbon Dioxide 28 Anion Gap 7 L BUN 7.8 Creatinine 0.7 Est GFR (CKD-EPI)AfAm 110.69 Est GFR (CKD-EPI)NonAf 95.50 Random Glucose 115 H Calcium 8.1 L Magnesium 2.0 Total Bilirubin 1.5 H AST 36 ALT 20 Alkaline Phosphatase 70 Total Protein 5.5 L Albumin 2.3 L Active Medications Generic Name Dose Route Start Last Admin Trade Name Freq PRN Reason Stop Dose Admin Acetaminophen 1,000 mg 05/25/19 11:08 05/26/19 01:14 Ofirmev Injection - IVPB 1,000 mg Q6H PRN Administration PAIN LEVEL 7 - 10 Atorvastatin Calcium 80 mg 05/25/19 22:00 05/25/19 22:08 Lipitor - PO 80 mg HS GRECIA Administration Docusate Sodium 100 mg 05/25/19 15:45 05/26/19 13:09 Colace - PO 100 mg TID GRECIA Administration Hydromorphone HCl 10 mg 05/25/19 18:18 05/26/19 07:23 Hydromorphone 10 Mg/50 Ml-Ns TRIBAL COUNCIL MEMBER 05/30/19 09:06 Not Given TRIBAL COUNCIL MEMBER GRECIA Protocol Dextrose/Sodium Chloride 20 meq in 1,000 mls @ 75 mls/hr 05/25/19 10:45 05/26 11:20 Dextrose 5%-Normal Saline+20 Meq Kcl - IV 75 mls/hr ASDIR GRECIA Administration Ondansetron HCl 4 mg 05/25/19 18:18 Zofran Injection IVPUSH Q6H PRN NAUSEA AND/OR VOMITING Polyethylene Glycol 17 gm 05/25/19 15:45 05/26/19 09:58 Miralax (For Daily Use) - PO 17 gm DAILY GRECIA Administration ASSESSMENT/PLAN: Problem List - Problems (1) S/P laminectomy Assessment/Plan: Lumbar spinal stenosis with radiculopathy and neurogenic claudication s/p PEDRO LUIS L4-S1/L3-L4 PLIF/L3-S1 posterior instrumentation pain managed with reading professor pump advance diet as tolerated incentive spirometer physical therapy ambulated with pt today, and will see daily wound care bowel regimen Code(s): Z98.890 - OTHER SPECIFIED POSTPROCEDURAL STATES (2) Hypercholesteremia Assessment/Plan: on lipitor 80mg daily Code(s): E78.00 - PURE HYPERCHOLESTEROLEMIA, UNSPECIFIED (3) Prophylactic measure Assessment/Plan: bowel regimen incentive spriometer clears, advance as tolerated full code Code(s): Z29.9 - ENCOUNTER FOR PROPHYLACTIC MEASURES, UNSPECIFIED Visit type - Emergency Visit Emergency Visit: Yes ED Registration Date: 05/23/19 Care time: The patient presented to the Emergency Department on the above date and was hospitalized for further evaluation of their emergent condition. - New Patient This patient is new to me today: No - Critical Care Critical Care patient: No - Discharge Referral Referred to [facility] No
[2019-05-26] MEDS: ATORVASTATIN CA 80 MG TABLET (FP) PO SCH (21:13)
[2019-05-27] MEDS: DOCUSATE SODIUM 100 MG CAPSULE (FP) PO SCH ×3 (06:06→21:30)
[2019-05-27] MEDS ORDERED: ACETAMINOPHEN 325 MG TABLET (FP) PO ONE (06:31)
[2019-05-27 07:20] LABS: BASO % 0.5 % (0-2.0); EOS % 3.4 % (0-4.5); HEMATOCRIT 26.6 % (32.4-45.2); HEMOGLOBIN 8.8 GM/dL (10.7-15.3); LYMPH % 12.2 % (8-40); MCH 27.1 pg (25.7-33.7); MCHC 32.9 g/dl (32.0-36.0); MEAN CELL VOLUME 82.4 fl (80-96); MEAN PLT VOLUME 8.4 fl (7.5-11.1); MONO % 9.1 % (3.8-10.2); NEUT % 74.8 % (42.8-82.8); PLATELET COUNT 203 K/MM3 (134-434); RBC 3.23 M/mm3 (3.60-5.2); RDW 14.5 % (11.6-15.6); WHITE BLOOD COUNT 6.7 K/mm3 (4.0-10.0)
[2019-05-27 07:50] LABS: ALBUMIN 2.2 g/dl (3.4-5.0); BILIRUBIN,TOTAL 1.2 mg/dL (0.2-1); CALCIUM 7.8 mg/dL (8.5-10.1); CREATININE 0.8 mg/dL (0.55-1.3); MAGNESIUM 1.8 mg/dL (1.8-2.4); POTASSIUM 3.6 mmol/L (3.5-5.1); TOT PROT 5.5 g/dl (6.4-8.2)
--- NOTE | 2019-05-27 08:41 | PN ---
Progress Note (short form) - Note Progress Note: Anesthesia HOMEBOUND TEACHER round POD#4, S/P lumbar hardware removal under GA and PNB. Pat seen and examined. AAOX3. VSS. Resting in bed. Tolerating po. Doing well with PT. Pain score 2-6/10. Right now c/o cramp in her legs. Will D/C HOMEBOUND TEACHER. Can start po analgetics as per primary team.
[2019-05-27] MEDS: POLYETHYLENE GLYCOL 3350 119 GM BTL PO SCH (09:37)
[2019-05-27] MEDS ORDERED: oxyCODONE HCL 5 MG TABLET PO PRN (13:44)
[2019-05-27] MEDS: oxyCODONE HCL 5 MG TABLET PO PRN ×2 (14:02→19:43)
[2019-05-27] MEDS: ASCORBIC ACID 500 MG TABLET (FP) PO SCH (14:03)
[2019-05-27] MEDS: FERROUS SO4 325 MG TABLET (FP) PO SCH ×2 (14:03→21:31)
[2019-05-27] MEDS: FOLIC ACID 1 MG TABLET (FP) PO SCH (14:03)
--- NOTE | 2019-05-27 14:34 | PN ---
Progress Note (short form) - Note Progress Note: Surgery POD#4 POD multi level laminectomy and decompression. Patient seen and examined at bedside with no complaints. WORK ADJUSTMENT INSTRUCTOR discontinued this morning and pain controlled with oral pain meds. Patient has been OOB, ambulating without assistance voiding and moving her bowels. She states the radicular left leg pain continues to improve. She denies any CP, SOB, N/V, fever or chills. She is tolerating a regular diet. Vital Signs Temp 98.8 F 05/27/19 14:00 Pulse 102 H 05/27/19 14:00 Resp 20 05/27/19 14:00 BP 117/69 05/27/19 14:00 Pulse Ox 97 05/27/19 02:00 Intake & Output 05/26/19 05/27/19 05/27/19 23:59 11:59 23:59 Intake Total 600 Output Total 650 Balance -50 Intake: IV 600 DEXTROSE 5%-NORMAL SALINE 600 +20 MEQ KCL - 20 meq In 1 ,000 ml @ 75 mls/hr IV ASDIR GRECIA Rx#:[id number] Output: Urine 650 [place]wood 650 Other: Voiding Method Toilet Toilet # Unmeasured Voids [place] 1 Void 1 1 Bowel Movement Yes: 1 Yes # Bowel Movements 1 1 CBC, BMP 05/27/19 06:35 05/27/19 06:35 PE: A&Ox3, NAD Unlabored resp on RA ABD: soft, DT, Minimal distension. Lumbar spine: incision c/d/i with surrounding tissue intact and no evidence of erythema, edema, collection or d/c B/L LE compartments soft, supple and non-tender with 5/5 dorsi/plantar flexion and +2 DP pulses Problem List - Problems (1) S/P laminectomy Assessment/Plan: POD #4 patient doing well with mild post op anemia, stable, and resolving fevers. Encourage daily IS OOb and ambulate as tolerated Pain management Start PO Iron, Folate and Vitamin C Good bowel regimen d/c planning for rehab pending. Evaluation and plan discussed with Dr Tate. Code(s): Z98.890 - OTHER SPECIFIED POSTPROCEDURAL STATES
--- NOTE | 2019-05-27 15:01 | PN ---
Physical Exam: SUBJECTIVE: Patient seen and examined at the bedside. pain controlled. not constipated. feels well OBJECTIVE: dressing changed by PA today, DRILL FOREMAN d/c and now on oxycodone Patient is a 58 year old female with a significant past medical history of anemia, chronic back pain, depression, lumbar radiculopathy and HLD. She is being monitored in the ICU s/p surgery for removal of hardware L4-S1, inspection of fusion mass, L3 & L4 laminectomies, L3-L4, L3-S1 posterior instrumented spinal fusion. Vital Signs Period Temp Pulse Resp BP Sys/Armas Pulse Ox Last 24 Hr 98.8 F-101.4 F 84-102 18-20 97-117/60-69 97-98 GENERAL: The patient is awake, alert, and fully oriented, in no acute distress. HEAD: Normal with no signs of trauma. EYES: PERRL, extraocular movements intact, sclera anicteric, conjunctiva clear. No ptosis. ENT: Ears normal, nares patent, oropharynx clear without exudates, moist mucous membranes. NECK: Trachea midline, full range of motion, supple. LUNGS: Breath sounds equal, clear to auscultation bilaterally HEART: Regular rate and rhythm, S1, S2 without murmur, rub or gallop. ABDOMEN: Soft, nontender, nondistended, normoactive bowel sounds EXTREMITIES: 2+ pulses, warm, well-perfused, no edema. NEUROLOGICAL: Normal speech, gait not observed. PSYCH: Normal mood, normal affect. Laboratory Results - last 24 hr 05/27/19 05/27/19 06:35 06:35 WBC 6.7 RBC 3.23 L Hgb 8.8 L Hct 26.6 L MCV 82.4 MCH 27.1 MCHC 32.9 RDW 14.5 Plt Count 203 D MPV 8.4 Absolute Neuts (auto) 5.0 Neutrophils % 74.8 Lymphocytes % 12.2 D Monocytes % 9.1 Eosinophils % 3.4 D Basophils % 0.5 Nucleated RBC % 0 Sodium 138 Potassium 3.6 Chloride 104 Carbon Dioxide 29 Anion Gap 5 L BUN 5.0 L Creatinine 0.8 Est GFR (CKD-EPI)AfAm 94.19 Est GFR (CKD-EPI)NonAf 81.27 Random Glucose 122 H Calcium 7.8 L Magnesium 1.8 Total Bilirubin 1.2 H AST 34 ALT 23 Alkaline Phosphatase 77 Total Protein 5.5 L Albumin 2.2 L Active Medications Generic Name Dose Route Start Last Admin Trade Name Freq PRN Reason Stop Dose Admin Acetaminophen 650 mg 05/27/19 13:43 Tylenol - PO Q4H PRN fever or pain Ascorbic Acid 500 mg 05/27/19 13:00 05/27/19 14:03 Vitamin C - PO 500 mg DAILY GRECIA Administration Atorvastatin Calcium 80 mg 05/25/19 22:00 05/26/19 21:13 Lipitor - PO 80 mg HS GRECIA Administration Docusate Sodium 100 mg 05/25/19 15:45 05/27/19 14:02 Colace - PO 100 mg TID GRECIA Administration Ferrous Sulfate 325 mg 05/27/19 13:00 05/27/19 14:03 Feosol - PO 325 mg BID GRECIA Administration Folic Acid 1 mg 05/27/19 13:00 05/27/19 14:03 Folic Acid - PO 1 mg DAILY GRECIA Administration Ondansetron HCl 4 mg 05/25/19 18:18 Zofran Injection IVPUSH Q6H PRN NAUSEA AND/OR VOMITING Oxycodone HCl 5 mg 05/27/19 13:44 Roxicodone - PO Q4H PRN PAIN LEVEL 1-5 Oxycodone HCl 10 mg 05/27/19 13:44 05/27/19 14:02 Roxicodone - PO 10 mg Q4H PRN Administration PAIN LEVEL 6-10 Polyethylene Glycol 17 gm 05/25/19 15:45 05/27/19 09:37 Miralax (For Daily Use) - PO 17 gm DAILY GRECIA Administration ASSESSMENT/PLAN: Problem List - Problems (1) S/P laminectomy Assessment/Plan: Lumbar spinal stenosis with radiculopathy and neurogenic claudication s/p PEDRO LUIS L4-S1/L3-L4 PLIF/L3-S1 posterior instrumentation pain managed oxycodoen tolerating diet incentive spirometer physical therapy ambulated with pt today, and will see daily surgical wound care bowel regimen Code(s): Z98.890 - OTHER SPECIFIED POSTPROCEDURAL STATES (2) Hypercholesteremia Assessment/Plan: on lipitor 80mg daily Code(s): E78.00 - PURE HYPERCHOLESTEROLEMIA, UNSPECIFIED (3) Fever Assessment/Plan: fevers persist blood cultures 05/24/19 negative repeat cultures today Code(s): R50.9 - FEVER, UNSPECIFIED (4) Prophylactic measure Assessment/Plan: bowel regimen incentive spriometer clears, advance as tolerated full code Code(s): Z29.9 - ENCOUNTER FOR PROPHYLACTIC MEASURES, UNSPECIFIED Visit type - Emergency Visit Emergency Visit: Yes ED Registration Date: 05/23/19 Care time: The patient presented to the Emergency Department on the above date and was hospitalized for further evaluation of their emergent condition. - New Patient This patient is new to me today: No - Critical Care Critical Care patient: No - Discharge Referral Referred to [facility] No
[2019-05-27 18:06] LABS: EPI CELLS 4.4 /HPF (0-5/HPF); HYALINE CASTS 0 /lpf (0-8); URINE APPEARANCE CLEAR; URINE BACTERIA 68.1 /hpf (NEGATIVE); URINE BILIRUBIN NEGATIVE (NEGATIVE); URINE COLOR YELLOW; URINE GLUCOSE (UA) NEGATIVE (NEGATIVE); URINE KETONE NEGATIVE (NEGATIVE); URINE LEUK ESTERASE 1+ (NEGATIVE); URINE NITRITE NEGATIVE (NEGATIVE); URINE PROTEIN NEGATIVE (NEGATIVE); URINE RBC 3 /hpf (0-4); URINE WBC 6 /hpf (0-5)
[2019-05-27] MEDS: ATORVASTATIN CA 80 MG TABLET (FP) PO SCH (21:30)
--- NOTE | 2019-05-27 22:28 | PN ---
Progress Note (short form) - Note Progress Note: POD #4 On floor. Comfortable C/O Incisional pain. No leg pain. Fully orientated Walking better. CVS Stable RESP Clear ABD Soft Passed flatus Minimal distension. Wound Dry NEURO At baseline ASSESSMENT Doing well post L3to S1 decompression Instrumented fusion. PLAN Transfer out of ICU PT mobilize as tolerated Pain Mx D/C planning
[2019-05-28] MEDS: oxyCODONE HCL 5 MG TABLET PO PRN ×4 (03:43→21:54)
[2019-05-28] MEDS: DOCUSATE SODIUM 100 MG CAPSULE (FP) PO SCH ×3 (05:59→21:54)
[2019-05-28 07:55] LABS: BASO % 0.3 % (0-2.0); EOS % 5.8 % (0-4.5); HEMATOCRIT 25.4 % (32.4-45.2); HEMOGLOBIN 8.8 GM/dL (10.7-15.3); LYMPH % 25.5 % (8-40); MCH 28.4 pg (25.7-33.7); MCHC 34.5 g/dl (32.0-36.0); MEAN CELL VOLUME 82.4 fl (80-96); MEAN PLT VOLUME 8.3 fl (7.5-11.1); MONO % 11.2 % (3.8-10.2); NEUT % 57.2 % (42.8-82.8); PLATELET COUNT 231 K/MM3 (134-434); RBC 3.08 M/mm3 (3.60-5.2); RDW 14.6 % (11.6-15.6); WHITE BLOOD COUNT 5.2 K/mm3 (4.0-10.0)
[2019-05-28 08:37] LABS: ALBUMIN 2.3 g/dl (3.4-5.0); BILIRUBIN,TOTAL 1.3 mg/dL (0.2-1); BLOOD UREA NITROGEN 6.8 mg/dL (7-18); CALCIUM 8.1 mg/dL (8.5-10.1); CREATININE 0.7 mg/dL (0.55-1.3); POTASSIUM 3.6 mmol/L (3.5-5.1); TOT PROT 5.5 g/dl (6.4-8.2)
--- NOTE | 2019-05-28 10:13 | PN ---
Progress Note (short form) - Note Progress Note: POD#5 Vitals as per chart. Comfortable Incisional pain better No leg pain General medical parameters all stable No change ABD Soft Did pass stool. Wound Dry NEURO No motor or sensory deficits PLAN Mobilize FWBAT Pain MX D/C Thursday ?Nura
[2019-05-28] MEDS: FOLIC ACID 1 MG TABLET (FP) PO SCH (10:17)
[2019-05-28] MEDS: POLYETHYLENE GLYCOL 3350 119 GM BTL PO SCH (10:17)
[2019-05-28] MEDS: ASCORBIC ACID 500 MG TABLET (FP) PO SCH (10:17)
[2019-05-28] MEDS: FERROUS SO4 325 MG TABLET (FP) PO SCH ×2 (10:17→21:55)
[2019-05-28] MEDS: ACETAMINOPHEN 325 MG TABLET (FP) PO PRN (12:04)
--- NOTE | 2019-05-28 12:41 | PN ---
Physical Exam: SUBJECTIVE: Patient seen and examined at the bedside. sitting in chair. denies malaise, denies chills. OBJECTIVE: Patient is a 58 year old female with a significant past medical history of anemia, chronic back pain, depression, lumbar radiculopathy and HLD. She is being monitored in the ICU s/p surgery for removal of hardware L4-S1, inspection of fusion mass, L3 & L4 laminectomies, L3-L4, L3-S1 posterior instrumented spinal fusion. awaiting discharge to [facility], likely Thursday. Vital Signs Period Temp Pulse Resp BP Sys/Armas Pulse Ox Last 24 Hr 98.5 F-100.3 F 85-102 18-20 101-117/61-71 GENERAL: The patient is awake, alert, and fully oriented, in no acute distress. HEAD: Normal with no signs of trauma. EYES: PERRL, extraocular movements intact, sclera anicteric, conjunctiva clear. No ptosis. ENT: Ears normal, nares patent, oropharynx clear without exudates, moist mucous membranes. NECK: Trachea midline, full range of motion, supple. ABDOMEN: Soft, nontender, nondistended, normoactive bowel sounds EXTREMITIES: 2+ pulses, warm, well-perfused, no edema. NEUROLOGICAL: Normal speech, gait not observed. PSYCH: Normal mood, normal affect. Laboratory Results - last 24 hr 05/27/19 05/28/19 05/28/19 16:30 07:05 07:05 WBC 5.2 RBC 3.08 L Hgb 8.8 L Hct 25.4 L MCV 82.4 MCH 28.4 MCHC 34.5 RDW 14.6 Plt Count 231 MPV 8.3 Absolute Neuts (auto) 3.0 Neutrophils % 57.2 D Lymphocytes % 25.5 D Monocytes % 11.2 H Eosinophils % 5.8 H Basophils % 0.3 Nucleated RBC % 0 Sodium 138 Potassium 3.6 Chloride 104 Carbon Dioxide 28 Anion Gap 5 L BUN 6.8 L Creatinine 0.7 Est GFR (CKD-EPI)AfAm 110.69 Est GFR (CKD-EPI)NonAf 95.50 Random Glucose 91 Calcium 8.1 L Total Bilirubin 1.3 H AST 48 H ALT 38 Alkaline Phosphatase 94 Total Protein 5.5 L Albumin 2.3 L Urine Color Yellow Urine Appearance Clear Urine pH 8.0 Ur Specific [place] 1.007 L Urine Protein Negative Urine Glucose (UA) Negative Urine Ketones Negative Urine Blood Negative Urine Nitrite Negative Urine Bilirubin Negative Urine Urobilinogen 1.0 Ur Leukocyte Esterase 1+ H Urine WBC (Auto) 6 Urine RBC (Auto) 3 Urine Casts (Auto) 0 U Epithel Cells (Auto) 4.4 Urine Bacteria (Auto) 68.1 Active Medications Generic Name Dose Route Start Last Admin Trade Name Freq PRN Reason Stop Dose Admin Acetaminophen 650 mg 05/27/19 13:43 05/28/19 12:04 Tylenol - PO 650 mg Q4H PRN Administration fever or pain Ascorbic Acid 500 mg 05/27/19 13:00 05/28/19 10:17 Vitamin C - PO 500 mg DAILY GRECIA Administration Atorvastatin Calcium 80 mg 05/25/19 22:00 05/27/19 21:30 Lipitor - PO 80 mg HS GRECIA Administration Docusate Sodium 100 mg 05/25/19 15:45 05/28/19 05:59 Colace - PO 100 mg TID GRECIA Administration Ferrous Sulfate 325 mg 05/27/19 13:00 05/28/19 10:17 Feosol - PO 325 mg BID GRECIA Administration Folic Acid 1 mg 05/27/19 13:00 05/28/19 10:17 Folic Acid - PO 1 mg DAILY GRECIA Administration Ondansetron HCl 4 mg 05/25/19 18:18 Zofran Injection IVPUSH Q6H PRN NAUSEA AND/OR VOMITING Oxycodone HCl 5 mg 05/27/19 13:44 Roxicodone - PO Q4H PRN PAIN LEVEL 1-5 Oxycodone HCl 10 mg 05/27/19 13:44 05/28/19 08:45 Roxicodone - PO 10 mg Q4H PRN Administration PAIN LEVEL 6-10 Polyethylene Glycol 17 gm 05/25/19 15:45 05/28/19 10:17 Miralax (For Daily Use) - PO 17 gm DAILY GRECIA Administration ASSESSMENT/PLAN: Problem List - Problems (1) S/P laminectomy Assessment/Plan: Lumbar spinal stenosis with radiculopathy and neurogenic claudication s/p PEDRO LUIS L4-S1/L3-L4 PLIF/L3-S1 posterior instrumentation pain managed oxycodone tolerating diet incentive spirometer physical therapy ambulated with pt today, and will see daily surgical wound care bowel regimen Code(s): Z98.890 - OTHER SPECIFIED POSTPROCEDURAL STATES (2) Hypercholesteremia Assessment/Plan: on lipitor 80mg daily Code(s): E78.00 - PURE HYPERCHOLESTEROLEMIA, UNSPECIFIED (3) Fever Assessment/Plan: low grade temps, WBC stable blood cultures 05/24/19 negative repeat cultures pending Code(s): R50.9 - FEVER, UNSPECIFIED (4) Prophylactic measure Assessment/Plan: bowel regimen incentive spriometer clears, advance as tolerated full code Code(s): Z29.9 - ENCOUNTER FOR PROPHYLACTIC MEASURES, UNSPECIFIED Visit type - Emergency Visit Emergency Visit: Yes ED Registration Date: 05/23/19 Care time: The patient presented to the Emergency Department on the above date and was hospitalized for further evaluation of their emergent condition. - New Patient This patient is new to me today: No - Critical Care Critical Care patient: No - Discharge Referral Referred to [facility] Med P.C.: No
[2019-05-28] MEDS: ATORVASTATIN CA 80 MG TABLET (FP) PO SCH (21:54)
[2019-05-28] MEDS ORDERED: PT OWN MED DRAWER 7, Y5N ONE (22:26)
[2019-05-29] MEDS: oxyCODONE HCL 5 MG TABLET PO PRN ×3 (02:22→21:37)
[2019-05-29] MEDS: DOCUSATE SODIUM 100 MG CAPSULE (FP) PO SCH ×3 (05:56→21:37)
[2019-05-29 06:41] LABS: BASO % 0.6 % (0-2.0); HEMATOCRIT 27.7 % (32.4-45.2); HEMOGLOBIN 9.3 GM/dL (10.7-15.3); LYMPH % 27.7 % (8-40); MCH 27.8 pg (25.7-33.7); MCHC 33.5 g/dl (32.0-36.0); MONO % 11.7 % (3.8-10.2); PLATELET COUNT 300 K/MM3 (134-434); RBC 3.34 M/mm3 (3.60-5.2); RDW 14.9 % (11.6-15.6)
[2019-05-29 07:43] LABS: ALBUMIN 2.4 g/dl (3.4-5.0); BILIRUBIN,TOTAL 0.9 mg/dL (0.2-1); BLOOD UREA NITROGEN 8.5 mg/dL (7-18); CALCIUM 8.2 mg/dL (8.5-10.1); CREATININE 0.7 mg/dL (0.55-1.3); POTASSIUM 3.7 mmol/L (3.5-5.1)
[2019-05-29] MEDS: ASCORBIC ACID 500 MG TABLET (FP) PO SCH (09:50)
[2019-05-29] MEDS: FERROUS SO4 325 MG TABLET (FP) PO SCH ×2 (09:50→21:37)
[2019-05-29] MEDS: FOLIC ACID 1 MG TABLET (FP) PO SCH (09:50)
[2019-05-29] MEDS: POLYETHYLENE GLYCOL 3350 119 GM BTL PO SCH (10:27)
[2019-05-29] MEDS: ACETAMINOPHEN 325 MG TABLET (FP) PO PRN (15:53)
--- NOTE | 2019-05-29 16:31 | PN ---
Physical Exam: SUBJECTIVE: Patient seen and examined OBJECTIVE: Patient is a 58 year old female with a significant past medical history of anemia, chronic back pain, depression, lumbar radiculopathy and HLD. She is being monitored in the ICU s/p surgery for removal of hardware L4-S1, inspection of fusion mass, L3 & L4 laminectomies, L3-L4, L3-S1 posterior instrumented spinal fusion. awaiting discharge to [facility], likely Thursday. Vital Signs Period Temp Pulse Resp BP Sys/Armas Pulse Ox Last 24 Hr 98.7 F 87-92 18-18 102-124/58-73 GENERAL: The patient is awake, alert, and fully oriented, in no acute distress. HEAD: Normal with no signs of trauma. EYES: PERRL, extraocular movements intact, sclera anicteric, conjunctiva clear. No ptosis. ENT: Ears normal, nares patent, oropharynx clear without exudates, moist mucous membranes. NECK: Trachea midline, full range of motion, supple. ABDOMEN: Soft, nontender, nondistended, normoactive bowel sounds EXTREMITIES: 2+ pulses, warm, well-perfused, no edema. NEUROLOGICAL: Normal speech, gait not observed. PSYCH: Normal mood, normal affect. Laboratory Results - last 24 hr 05/29/19 05/29/19 06:20 06:20 WBC 5.0 RBC 3.34 L Hgb 9.3 L Hct 27.7 L MCV 83.0 MCH 27.8 MCHC 33.5 RDW 14.9 Plt Count 300 D MPV 8.0 Absolute Neuts (auto) 2.7 Neutrophils % 54.0 Lymphocytes % 27.7 Monocytes % 11.7 H Eosinophils % 6.0 H Basophils % 0.6 Nucleated RBC % 0 Sodium 138 Potassium 3.7 Chloride 103 Carbon Dioxide 30 Anion Gap 6 L BUN 8.5 Creatinine 0.7 Est GFR (CKD-EPI)AfAm 110.69 Est GFR (CKD-EPI)NonAf 95.50 Random Glucose 95 Calcium 8.2 L Total Bilirubin 0.9 AST 50 H ALT 44 Alkaline Phosphatase 108 Total Protein 6.0 L Albumin 2.4 L Active Medications Generic Name Dose Route Start Last Admin Trade Name Freq PRN Reason Stop Dose Admin Acetaminophen 650 mg 05/27/19 13:43 05/29/19 15:53 Tylenol - PO 650 mg Q4H PRN Administration fever or pain Ascorbic Acid 500 mg 05/27/19 13:00 05/29/19 09:50 Vitamin C - PO 500 mg DAILY GRECIA Administration Atorvastatin Calcium 80 mg 05/25/19 22:00 05/28/19 21:54 Lipitor - PO 80 mg HS GRECIA Administration Docusate Sodium 100 mg 05/25/19 15:45 05/29/19 13:11 Colace - PO 100 mg TID GRECIA Administration Ferrous Sulfate 325 mg 05/27/19 13:00 05/29/19 09:50 Feosol - PO 325 mg BID GRECIA Administration Folic Acid 1 mg 05/27/19 13:00 05/29/19 09:50 Folic Acid - PO 1 mg DAILY GRECIA Administration Ondansetron HCl 4 mg 05/25/19 18:18 Zofran Injection IVPUSH Q6H PRN NAUSEA AND/OR VOMITING Oxycodone HCl 5 mg 05/27/19 13:44 Roxicodone - PO Q4H PRN PAIN LEVEL 1-5 Oxycodone HCl 10 mg 05/27/19 13:44 05/29/19 09:50 Roxicodone - PO 10 mg Q4H PRN Administration PAIN LEVEL 6-10 Polyethylene Glycol 17 gm 05/25/19 15:45 05/29/19 10:27 Miralax (For Daily Use) - PO 17 gm DAILY GRECIA Administration ASSESSMENT/PLAN: Problem List - Problems (1) S/P laminectomy Assessment/Plan: Lumbar spinal stenosis with radiculopathy and neurogenic claudication s/p PEDRO LUIS L4-S1/L3-L4 PLIF/L3-S1 posterior instrumentation pain managed oxycodone tolerating diet incentive spirometer physical therapy ambulated with pt today, and will see daily surgical wound care bowel regimen Code(s): Z98.890 - OTHER SPECIFIED POSTPROCEDURAL STATES (2) Hypercholesteremia Assessment/Plan: on lipitor 80mg daily Code(s): E78.00 - PURE HYPERCHOLESTEROLEMIA, UNSPECIFIED (3) Fever Assessment/Plan: fevers resolved, cultures negative. Code(s): R50.9 - FEVER, UNSPECIFIED (4) Prophylactic measure Assessment/Plan: bowel regimen incentive spriometer soft diet full code Code(s): Z29.9 - ENCOUNTER FOR PROPHYLACTIC MEASURES, UNSPECIFIED Visit type - Emergency Visit Emergency Visit: Yes ED Registration Date: 05/23/19 Care time: The patient presented to the Emergency Department on the above date and was hospitalized for further evaluation of their emergent condition. - New Patient This patient is new to me today: No - Critical Care Critical Care patient: No - Discharge Referral Referred to [facility] Med P.C.: No
[2019-05-29] MEDS: ATORVASTATIN CA 80 MG TABLET (FP) PO SCH (21:36)
[2019-05-30] MEDS: DOCUSATE SODIUM 100 MG CAPSULE (FP) PO SCH (05:49)
[2019-05-30] MEDS: oxyCODONE HCL 5 MG TABLET PO PRN ×2 (05:50→11:09)
[2019-05-30 07:42] VITALS: TEMP 98.8
[2019-05-30] MEDS ORDERED: PT OWN MED DRAWER 7, Y5N ONE (09:26)
[2019-05-30] MEDS: FOLIC ACID 1 MG TABLET (FP) PO SCH (11:00)
[2019-05-30] MEDS: ASCORBIC ACID 500 MG TABLET (FP) PO SCH (11:00)
[2019-05-30] MEDS: FERROUS SO4 325 MG TABLET (FP) PO SCH (11:00)
[2019-05-30] MEDS: POLYETHYLENE GLYCOL 3350 119 GM BTL PO SCH (11:04)
[2019-05-30 11:21] VITALS: BP 101/63; PULSE 83
--- NOTE | 2019-05-30 12:13 | DS ---
Physical Exam: SUBJECTIVE: Patient seen and examined at the bedside. denies any malaise. OBJECTIVE: d/c to [facility] today Patient is a 58 year old female with a significant past medical history of anemia, chronic back pain, depression, lumbar radiculopathy and HLD. She is being monitored in the ICU s/p surgery for removal of hardware L4-S1, inspection of fusion mass, L3 & L4 laminectomies, L3-L4, L3-S1 posterior instrumented spinal fusion. [facility] Vital Signs Period Temp Pulse Resp BP Sys/Armas Pulse Ox Last 24 Hr 98.3 F-98.8 F 77-87 18-20 99-126/58-66 98 PHYSICAL EXAM GENERAL: The patient is awake, alert, and fully oriented, in no acute distress. HEAD: Normal with no signs of trauma. EYES: PERRL, extraocular movements intact, sclera anicteric, conjunctiva clear. No ptosis. ENT: Ears normal, nares patent, oropharynx clear without exudates, moist mucous membranes. NECK: Trachea midline, full range of motion, supple. ABDOMEN: Soft, nontender, nondistended, normoactive bowel sounds EXTREMITIES: 2+ pulses, warm, well-perfused, no edema. NEUROLOGICAL: Normal speech, gait not observed. PSYCH: Normal mood, normal affect. LABS HOSPITAL COURSE: Date of Admission:05/23/19 Date of Discharge: 05/30/19 Minutes to complete discharge: 45 Discharge Summary Problems reviewed: Yes Reason For Visit: FUSION OF SPINE, LUMBAR REGION Current Active Problems Fever (Acute) Hypercholesteremia (Acute) Prophylactic measure (Acute) S/P laminectomy (Acute) Condition: Stable - Instructions Diet, Activity, Other Instructions: Discharge to [place] Follow up with Dr. Tate Referrals: Perry Tate MD [Staff Physician] - Disposition: [facility] - Home Medications Comprehensive Discharge Medication List: Ambulatory Orders Atorvastatin Ca [Lipitor] 80 mg PO HS 05/19/19 Cholecalciferol (Vitamin D3) [Vitamin D3 -] 1,000 unit PO DAILY 05/19/19 Cyclobenzaprine HCl 10 mg PO HS PRN 05/19/19 Diazepam [Valium] 10 mg PO PRN PRN 05/19/19 Oxycodone HCl/Acetaminophen [Percocet 5-325 mg Tablet] 1 tab PO Q4H 05/19/19 Problem List - Problems (1) S/P laminectomy Assessment/Plan: Lumbar spinal stenosis with radiculopathy and neurogenic claudication s/p PEDRO LUIS L4-S1/L3-L4 PLIF/L3-S1 posterior instrumentation pain managed oxycodone tolerating diet incentive spirometer surgical wound care bowel regimen Code(s): Z98.890 - OTHER SPECIFIED POSTPROCEDURAL STATES (2) Hypercholesteremia Assessment/Plan: on lipitor 80mg daily Code(s): E78.00 - PURE HYPERCHOLESTEROLEMIA, UNSPECIFIED (3) Fever Assessment/Plan: fevers resolved, cultures negative. Code(s): R50.9 - FEVER, UNSPECIFIED (4) Prophylactic measure Assessment/Plan: bowel regimen incentive spriometer soft diet full code Code(s): Z29.9 - ENCOUNTER FOR PROPHYLACTIC MEASURES, UNSPECIFIED This patient is new to me today: No Emergency Visit: Yes ED Registration Date: 05/23/19 Care time: The patient presented to the Emergency Department on the above date and was hospitalized for further evaluation of their emergent condition. Critical Care patient: No - Discharge Referral Referred to [facility] Med P.C.: No
== END 2019-05-30 15:24 | DRG 304 ==
LOC: JSAMEDAYSX 06:03 → JICU 17:39 → J8W 05-25 20:02
PROVIDERS: ADMIT Orthopaedic Surgery Orthopaedic Surgery of the Spine; ATTEND Nurse Practitioner Family
PROC: 0SG0071 Fusion of Lumbar Vertebral Joint with Autologous Tissue Substitute, Posterior Approach, Posterior Column, Open Approach (ICD-10-PCS; 2019-05-23)
PROC: 0SB20ZZ Excision of Lumbar Vertebral Disc, Open Approach (ICD-10-PCS; 2019-05-23)
PROC: 00BY0ZZ Excision of Lumbar Spinal Cord, Open Approach (ICD-10-PCS; 2019-05-23)
PROC: 0SG30AJ Fusion of Lumbosacral Joint with Interbody Fusion Device, Posterior Approach, Anterior Column, Open Approach (ICD-10-PCS; 2019-05-23)
PROC: 0SG3071 Fusion of Lumbosacral Joint with Autologous Tissue Substitute, Posterior Approach, Posterior Column, Open Approach (ICD-10-PCS; 2019-05-23)
PROC: 0SP00AZ Removal of Interbody Fusion Device from Lumbar Vertebral Joint, Open Approach (ICD-10-PCS; 2019-05-23)
PROC: 0SP30AZ Removal of Interbody Fusion Device from Lumbosacral Joint, Open Approach (ICD-10-PCS; 2019-05-23)
PROC: 07DR0ZZ Extraction of Iliac Bone Marrow, Open Approach (ICD-10-PCS; 2019-05-23)
PROC: B01BZZZ Fluoroscopy of Spinal Cord (ICD-10-PCS; 2019-05-23)
PROC: 4A11X4G Monitoring of Peripheral Nervous Electrical Activity, Intraoperative, External Approach (ICD-10-PCS; 2019-05-23)
PROC: 0SG10AJ Fusion of 2 or more Lumbar Vertebral Joints with Interbody Fusion Device, Posterior Approach, Anterior Column, Open Approach (ICD-10-PCS; principal; 2019-05-23 08:00)
DX: M48.062 Spinal stenosis, lumbar region with neurogenic claudication (principal); M51.16 Intervertebral disc disorders with radiculopathy, lumbar region; M53.2X6 Spinal instabilities, lumbar region; D64.9 Anemia, unspecified; F32.9 Major depressive disorder, single episode, unspecified; E78.5 Hyperlipidemia, unspecified; R50.9 Fever, unspecified
CPT/HCPCS: 36415; 71045-TC-FY; 76000-TC-FY; 80048; 80053; 81003; 83605; 83735; 84100; 85025; 85027; 86850; 86900; 86901; 87040; 87086; 88300-TC; 88304-TC; 94010; 94760; 97116-GP; 97161-GP; J0131; J1644